=== PATIENT | female | born 1950 | race Caucasian/White ===

== ENCOUNTER → 2022-10-16 | Outpatient (CLI) | payer MEDICARE | LOC: CARD 08:03 | PROVIDERS: ATTEND Internal Medicine Cardiovascular Disease | DX: I07.1 Rheumatic tricuspid insufficiency (principal); I10 Essential (primary) hypertension; I25.10 Atherosclerotic heart disease of native coronary artery without angina pectoris | CPT/HCPCS: 93306 ==

== ENCOUNTER → 2022-10-30 | Outpatient (CLI) | payer MEDICARE ==
[2022-10-30 10:45] VITALS: BP 145/85
--- NOTE | 2022-11-02 08:53 | Cardiology Stress Test Report ---
Stress Test Report Date of Procedure/Referring: Date of Procedure: Oct 30, 2022 PCP Summer Diez MD Admitting Physician Admitting Physician: Attending Physician: Girish Walton MD Baseline Heart Rate: 65 Baseline Blood Pressure: Blood Pressure Systolic: 145 Blood Pressure Diastolic: 85 Baseline EKG: Baseline EKG: NSR Summary/Conclusion: Summary: In summary, the patient started exercising with a baseline heart rate, blood pressure and EKG mentioned above Patient was able to exercise for a total of 4 minutes on Mal protocol, METs 5.8 Maximum heart rate 136 Maximum blood pressure 236/98 Stress EKG, Minimal nondiagnostic changes Recovery EKG , Return to baseline Conclusion: 1. Good exercise tolerance for a total of 4 minutes on Mal protocol, 5.8 METs, achieving 91 percent of maximum expected heart rate 2. Minimal nondiagnostic EKG changes with exercise returned to baseline during recovery 3. No arrhythmia was noted 4. Hypertensive response to exercise with peak blood pressure 236/98 return to baseline during recovery GIRISH Steele MD Nov 02, 2022 08:53
== END ==
LOC: CARD 09:24
PROVIDERS: ATTEND Internal Medicine Cardiovascular Disease
DX: R06.09 Other forms of dyspnea (principal)
CPT/HCPCS: 93017